=== PATIENT | female | born 1955 | race African-American/Black ===

== ENCOUNTER 2016-09-25 20:13 | Emergency (ER) | payer MEDICAID ==
[~2016-09-25] VITALS: Ht 170.2 cm; Wt 110.5 kg
[~2016-09-25 20:13] MED LIST: ALBU6.7H2 IH; AMLO5TAB88 PO; ASPI81TA2 PO; ATOR10TA PO; AZIT500T5 PO; DEXTL PO; IPRA3AMP9 HHN; METO50TA5 PO; QVAR80 IH; Tramadol Hcl PO; [UNRECOGNIZED DRUG - CODE] PO
[2016-09-25 20:35] VITALS: BP 136/64
== END 2016-09-25 22:54 | disposition left against medical advice (07) ==
LOC: ER 20:39
DX: Z53.21 Procedure and treatment not carried out due to patient leaving prior to being seen by health care provider (principal)

== ENCOUNTER 2016-12-08 22:38 | Emergency (ER) | payer MEDICAID ==
[~2016-12-08 22:38] MED LIST changes: +ASPI-1160 PO; -ASPI81TA2 PO
== END 2016-12-09 00:26 | disposition left against medical advice (07) ==
LOC: ER 22:38
DX: K62.5 Hemorrhage of anus and rectum (principal); Z53.21 Procedure and treatment not carried out due to patient leaving prior to being seen by health care provider

== ENCOUNTER 2016-12-13 05:30 | Emergency (ER) | payer MEDICAID ==
[~2016-12-13 05:30] MED LIST changes: -ASPI-1160 PO; +ASPI81TA2 PO
[2016-12-13 07:27] VITALS: BP 159/75
[2016-12-13] MEDS ORDERED: SODIUM CHLORIDE 0.9% 1,000 ML IV ONE (07:32)
[2016-12-13 08:02] LABS: BASOPHILS % 0.4 % (0.0-2.0); EOSINOPHILS % 0.4 % (0.0-5.0); HEMATOCRIT. 40.1 % (36.0-48.0); HEMOGLOBIN. 13.4 g/dL (12.0-16.0); LYMPHOCYTES % 7.8 % (20.0-50.0); MEAN CORPUSCULAR HEMOGLOBIN 27.8 pg (28.0-32.0); MEAN CORPUSCULAR VOLUME 83.2 fL (81.0-99.0); MEAN PLATELET VOLUME 8.4 fl (7.4-10.4); MONOCYTES % 6.4 % (2.0-8.0); PLATELET 131 x1000/uL (130-400); RED BLOOD CELL COUNT 4.82 mill/uL (4.2-5.4); RED CELL DISTRIBUTION WIDTH 16.7 % (11.6-14.6)
[2016-12-13 08:11] LABS: PARTIAL THROMBOPLASTIN TIME 21.9 sec (24.0-34.0); PROTHROMBIN TIME 10.3 sec
[2016-12-13 08:13] LABS: CARBON DIOXIDE 25 mEq/L (21-32); CHLORIDE 114 mEq/L (98-107)
== END 2016-12-13 10:02 | disposition home or self-care (01) ==
LOC: ER 05:30
DX: K64.4 Residual hemorrhoidal skin tags (principal); K62.89 Other specified diseases of anus and rectum; I48.91 Unspecified atrial fibrillation; J45.909 Unspecified asthma, uncomplicated; Z90.710 Acquired absence of both cervix and uterus; Z98.890 Other specified postprocedural states; Z88.0 Allergy status to penicillin; Z88.6 Allergy status to analgesic agent
CPT/HCPCS: 36415; 80053; 85025; 85610; 85730; 96360; 99284; J7030; Z7610

== ENCOUNTER 2017-06-05 10:21 | Emergency (ER) | payer MEDICAID ==
[~2017-06-05 10:21] MED LIST changes: +ASPI-1160 PO; -ASPI81TA2 PO; +DUONEB3 ML HHN; -IPRA3AMP9 HHN
== END 2017-06-05 11:18 | disposition left against medical advice (07) ==
LOC: ER 10:47
DX: Z53.21 Procedure and treatment not carried out due to patient leaving prior to being seen by health care provider (principal)

== ENCOUNTER 2018-03-06 04:16 | Emergency (ER) | payer MEDICAID ==
[~2018-03-06] VITALS: Ht 170.2 cm; Wt 108.0 kg
[~2018-03-06 04:16] MED LIST changes: +ALBU18HF2 IH; -ALBU6.7H2 IH; -AMLO5TAB88 PO; +ASPI-1159 PO; -ASPI-1160 PO; +AZIT250T12 PO; -AZIT500T5 PO; -DEXTL PO; +DILT240C3 PO; -DUONEB3 ML HHN; +GUAI600T44 PO; -METO50TA5 PO; +PULM50 HHN; -QVAR80 IH; +RANI300T4 PO; -Tramadol Hcl PO
[2018-03-06] MEDS ORDERED: PREDNISONE 20MG TABLET PO STA (04:51)
[2018-03-06] MEDS ORDERED: IPRATROPIUM BROMIDE (0.02%) 0.5MG/2.5ML NEB HHN STA (04:51)
[2018-03-06] MEDS ORDERED: ALBUTEROL (0.083%) 2.5MG/3ML NEB HHN STA (04:51)
[2018-03-06 06:02] VITALS: BP 137/64
== END 2018-03-06 06:05 | disposition home or self-care (01) ==
LOC: ER 04:16
DX: J44.1 Chronic obstructive pulmonary disease with (acute) exacerbation (principal); I48.91 Unspecified atrial fibrillation; Z88.0 Allergy status to penicillin; Z88.5 Allergy status to narcotic agent; Z79.82 Long term (current) use of aspirin; Z90.710 Acquired absence of both cervix and uterus
CPT/HCPCS: 93005; 94640; 99283; J7512; J7611

== ENCOUNTER 2018-06-04 07:00 | Emergency (ER) | payer MEDICAID ==
[~2018-06-04] VITALS: Ht 170.2 cm; Wt 105.0 kg
[2018-06-04] MEDS ORDERED: KETOROLAC 30MG/ML VIAL IM ONE (08:15)
[2018-06-04] MEDS ORDERED: ACETAMINOPHEN 325MG TABLET PO ONE (08:15)
[2018-06-04 09:58] VITALS: BP 132/71
== END 2018-06-04 10:18 | disposition home or self-care (01) ==
LOC: ER 07:00
DX: R51 Headache (principal); I48.91 Unspecified atrial fibrillation; J44.9 Chronic obstructive pulmonary disease, unspecified; Z98.890 Other specified postprocedural states; Z90.710 Acquired absence of both cervix and uterus; Z79.82 Long term (current) use of aspirin; Z79.899 Other long term (current) drug therapy; Z88.0 Allergy status to penicillin; Z88.5 Allergy status to narcotic agent
CPT/HCPCS: 96372; 99283; J1885

== ENCOUNTER 2018-07-30 02:17 | Emergency (ER) | payer MEDICAID ==
[~2018-07-30] VITALS: Ht 170.2 cm; Wt 109.0 kg
[2018-07-30] MEDS ORDERED: DILTIAZEM HCL 120MG CAPSULE CD 24HR PO ONE (03:30)
[2018-07-30 04:17] LABS: BASOPHILS % 0.7 % (0.0-2.0); EOSINOPHILS % 4.8 % (0.0-5.0); HEMATOCRIT. 41.4 % (36.0-48.0); HEMOGLOBIN. 13.4 g/dL (12.0-16.0); LYMPHOCYTES % 28.3 % (20.0-50.0); MEAN CORPUSCULAR HEMOGLOBIN 27.5 pg (28.0-32.0); MEAN CORPUSCULAR VOLUME 84.9 fL (81.0-99.0); MONOCYTES % 9.7 % (2.0-8.0); NEUTROPHILS % 56.5 % (40.0-76.0); PLATELET 155 x1000/uL (130-400); RED BLOOD CELL COUNT 4.88 mill/uL (4.2-5.4); RED CELL DISTRIBUTION WIDTH 15.9 % (11.6-14.6)
[2018-07-30 04:19] LABS: CHLORIDE 112 mEq/L (98-107)
[2018-07-30 04:22] LABS: ETHANOL BLOOD < 10 mg/dL
[2018-07-30] MEDS ORDERED: POTASSIUM CHLORIDE 20MEQ TABLET SR PO NR (05:30)
[2018-07-30 06:00] VITALS: BP 154/88
== END 2018-07-30 06:04 | disposition home or self-care (01) ==
LOC: ER 02:17
DX: I47.1 Supraventricular tachycardia (principal); I48.91 Unspecified atrial fibrillation; E87.6 Hypokalemia; J44.9 Chronic obstructive pulmonary disease, unspecified; Z90.710 Acquired absence of both cervix and uterus; Z98.890 Other specified postprocedural states; Z79.82 Long term (current) use of aspirin; Z79.899 Other long term (current) drug therapy; Z88.5 Allergy status to narcotic agent; Z88.0 Allergy status to penicillin
CPT/HCPCS: 36415; 71045; 80053; 84484; 85025; 93005; 99284; G0482

== ENCOUNTER 2018-09-13 06:14 | Emergency (ER) | payer MEDICAID ==
[~2018-09-13] VITALS: Ht 170.2 cm; Wt 107.0 kg
[2018-09-13] MEDS ORDERED: IBUPROFEN 600MG TABLET PO STA (06:56)
[2018-09-13] MEDS ORDERED: IPRATROPIUM BROMIDE (0.02%) 0.5MG/2.5ML NEB HHN STA (06:56)
[2018-09-13] MEDS ORDERED: ALBUTEROL (0.083%) 2.5MG/3ML NEB HHN STA (06:56)
[2018-09-13 08:24] VITALS: BP 128/64
== END 2018-09-13 08:36 | disposition home or self-care (01) ==
LOC: ER 06:14
DX: J45.909 Unspecified asthma, uncomplicated (principal); H60.91 Unspecified otitis externa, right ear; J44.9 Chronic obstructive pulmonary disease, unspecified; Z90.710 Acquired absence of both cervix and uterus; Z98.890 Other specified postprocedural states; Z79.82 Long term (current) use of aspirin; Z79.899 Other long term (current) drug therapy; Z88.0 Allergy status to penicillin; Z88.5 Allergy status to narcotic agent
CPT/HCPCS: 71045; 94640; 99283; J7611

== ENCOUNTER 2019-06-23 06:01 | Emergency (ER) | payer MEDICAID ==
[~2019-06-23] VITALS: Ht 170.2 cm; Wt 98.0 kg
[~2019-06-23 06:01] MED LIST changes: -ASPI-1159 PO; +ASPI-1393 PO
[2019-06-23] MEDS ORDERED: MORPHINE SULFATE 4 MG/ML CPJ (NOT FOR IM USE) IV STA (07:16)
[2019-06-23] MEDS ORDERED: ALBUTEROL (0.083%) 2.5MG/3ML NEB HHN STA (07:18)
[2019-06-23] MEDS ORDERED: IPRATROPIUM BROMIDE (0.02%) 0.5MG/2.5ML NEB HHN STA (07:18)
[2019-06-23] MEDS ORDERED: METHYLPREDNISOLONE SOD SUCC 125 MG/2 ML VIAL IV STA (07:18)
[2019-06-23 07:40] LABS: BASOPHILS % 0.8 % (0.0-2.0); EOSINOPHILS % 8.9 % (0.0-5.0); HEMATOCRIT. 43.3 % (36.0-48.0); HEMOGLOBIN. 13.9 g/dL (12.0-16.0); LYMPHOCYTES % 34.2 % (20.0-50.0); MEAN CORPUSCULAR HEMOGLOBIN 26.5 pg (28.0-32.0); MEAN CORPUSCULAR VOLUME 82.2 fL (81.0-99.0); MEAN PLATELET VOLUME 9.2 fl (7.4-10.4); MONOCYTES % 14.6 % (2.0-8.0); NEUTROPHILS % 41.5 % (40.0-76.0); PLATELET 166 x1000/uL (130-400); RED BLOOD CELL COUNT 5.26 mill/uL (4.2-5.4); RED CELL DISTRIBUTION WIDTH 15.5 % (11.6-14.6)
[2019-06-23 07:45] LABS: CHLORIDE 114 mEq/L (98-107)
[2019-06-23] MEDS ORDERED: KETOROLAC 30MG/ML VIAL IV ONE (08:45)
[2019-06-23] MEDS ORDERED: ONDANSETRON HCL 4MG/2ML INJ IV ONE (09:30)
[2019-06-23] MEDS ORDERED: ASPIRIN 325MG EC TABLET PO ONE (09:30)
[2019-06-23 11:55] VITALS: BP 135/72
== END 2019-06-23 12:16 | disposition left against medical advice (07) ==
LOC: ER 06:20 → CANBEDREQ 12:08 → ER 12:16
DX: R07.89 Other chest pain (principal); J44.9 Chronic obstructive pulmonary disease, unspecified; Z88.0 Allergy status to penicillin; Z88.5 Allergy status to narcotic agent; Z98.890 Other specified postprocedural states; Z90.710 Acquired absence of both cervix and uterus; Z87.891 Personal history of nicotine dependence; Z79.82 Long term (current) use of aspirin
CPT/HCPCS: 36415; 71045; 80053; 83880; 84484; 85025; 93005; 96374; 96375; 99284; J1885; J2270; J2405; J2930; J7611

== ENCOUNTER 2022-07-21 17:08 | Emergency (ER) | payer MEDICARE, MEDICAID ==
[~2022-07-21] VITALS: Ht 170.2 cm; Wt 106.0 kg
[~2022-07-21 17:08] MED LIST changes: -ASPI-1393 PO; +ASPI-1497 PO; -DILT240C3 PO; +DILT240C94 PO
[2022-07-21 17:23] VITALS: BP 133/65
== END 2022-07-21 18:26 | disposition left against medical advice (07) ==
LOC: ER 17:08
DX: I48.91 Unspecified atrial fibrillation (principal); R00.2 Palpitations; J44.9 Chronic obstructive pulmonary disease, unspecified; Z90.710 Acquired absence of both cervix and uterus; Z79.899 Other long term (current) drug therapy
CPT/HCPCS: 93005; 99283

== ENCOUNTER 2023-11-30 07:56 | Day surgery (SDC) | payer MEDICARE, MEDICAID ==
[~2023-11-30] VITALS: Ht 170.2 cm; Wt 110.2 kg
[~2023-11-30 07:56] MED LIST changes: +AMLO5TAB88 PO; -ATOR10TA PO; +ATOR40TA70 PO; -AZIT250T12 PO; +CLON0.1T PO; +DICL75TA5 PO; -DILT240C94 PO; +GABA-532 PO; -GUAI600T44 PO; +LACTATED RINGERS 1,000 ML IV SCH; +LOSA50TA41 PO; +METO-539 PO; +OMEP40CA20 PO; -PULM50 HHN; -RANI300T4 PO; -[UNRECOGNIZED DRUG - CODE] PO
[2023-11-30] MEDS: LACTATED RINGERS 1,000 ML IV SCH (09:27)
[2023-11-30] MEDS ORDERED: MIDAZOLAM HCL 2 MG/2 ML VIAL ONE (10:57)
[2023-11-30] MEDS ORDERED: PROPOFOL 200MG/20ML VIAL IV ONE ×3 (10:58→11:30)
[2023-11-30] MEDS ORDERED: LIDOCAINE HCL 1% 10 MG/ML 10ML VIAL ONE (10:59)
[2023-11-30] MEDS ORDERED: ONDANSETRON HCL 4MG/2ML INJ ONE (11:15)
[2023-11-30] MEDS ORDERED: DEXAMETHASONE 4MG/ML 1ML VIAL ONE (11:15)
[2023-12-02] MEDS ORDERED: ATOR10TA69 PO (21:58)
[2023-12-02] MEDS ORDERED: LOSA100T33 PO (21:58)
[2023-12-02] MEDS ORDERED: MOME13HF12 IH (21:58)
[2023-12-02] MEDS ORDERED: FURO40TA5 PO (23:31)
[2023-12-07] MEDS ORDERED: PRED10TA MT (10:52)
[2023-12-07] MEDS ORDERED: DOXY100T2 MT (10:52)
[2023-12-07] MEDS ORDERED: BENZ1LOZ73 MT (10:52)
== END 2023-11-30 13:25 | disposition home or self-care (01) ==
LOC: OR 07:56
PROVIDERS: ATTEND Internal Medicine Gastroenterology
DX: Z12.11 Encounter for screening for malignant neoplasm of colon (principal); R12 Heartburn; K29.50 Unspecified chronic gastritis without bleeding; K21.00 Gastro-esophageal reflux disease with esophagitis, without bleeding; I10 Essential (primary) hypertension; E66.9 Obesity, unspecified; E78.5 Hyperlipidemia, unspecified; E66.01 Morbid (severe) obesity due to excess calories; J45.909 Unspecified asthma, uncomplicated; I48.91 Unspecified atrial fibrillation; M19.90 Unspecified osteoarthritis, unspecified site; Z88.5 Allergy status to narcotic agent; Z88.8 Allergy status to other drugs, medicaments and biological substances; Z90.710 Acquired absence of both cervix and uterus; Z98.890 Other specified postprocedural states; Z88.0 Allergy status to penicillin; Z68.38 Body mass index [BMI] 38.0-38.9, adult; Z79.82 Long term (current) use of aspirin; Z86.73 Personal history of transient ischemic attack (TIA), and cerebral infarction without residual deficits
CPT/HCPCS: 43239; 88312; 88313; 88305; 93005; J1100; J3490; J2250; J2405; J2704; Z7610 ×9; G0121

== ENCOUNTER 2024-12-03 18:07 | Inpatient (IN) | payer MEDICARE, MEDICAID ==
[~2024-12-03] VITALS: Ht 165.1 cm; Wt 114.1 kg
[~2024-12-03 18:07] MED LIST changes: +ATOR10TA69 PO; -ATOR40TA70 PO; +BENZ1LOZ73 MT; +DOXY100T2 MT; +FURO40TA5 PO; -GABA-532 PO; -LACTATED RINGERS 1,000 ML IV SCH; +LOSA100T33 PO; -LOSA50TA41 PO; +MOME13HF12 IH; +PRED10TA MT
[2024-12-03 19:22] LABS: BASOPHILS % 0.7 % (0.0-2.0); EOSINOPHILS % 2.9 % (0.0-5.0); HEMATOCRIT. 41.5 % (36.0-48.0); HEMOGLOBIN. 13.4 g/dL (12.0-16.0); LYMPHOCYTES % 33.1 % (20.0-50.0); MEAN CORPUSCULAR HEMOGLOBIN 26.7 pg (28.0-32.0); MEAN CORPUSCULAR HGB CONC 32.4 g/dL (31.0-37.0); MEAN CORPUSCULAR VOLUME 82.5 fL (81.0-99.0); MEAN PLATELET VOLUME 8.7 fl (7.4-10.4); MONOCYTES % 13.2 % (2.0-8.0); NEUTROPHILS % 50.1 % (40.0-76.0); PLATELET 190 x1000/uL (130-400); RED BLOOD CELL COUNT 5.04 mill/uL (4.2-5.4); RED CELL DISTRIBUTION WIDTH 16.9 % (11.6-14.6); WHITE BLOOD COUNT 6.3 x1000/uL (4.5-11.0)
[2024-12-03 19:30] LABS: CHLORIDE 109 mEq/L (98-107); POTASSIUM 4.4 mEq/L (3.5-5.1); SODIUM 143 mEq/L (136-145)
[2024-12-03 19:31] LABS: CARBON DIOXIDE 25 mEq/L (21-32)
[2024-12-03 19:32] LABS: CALCIUM 8.6 mg/dL (8.7-10.4)
[2024-12-03] MEDS ORDERED: KETOROLAC 30MG/ML VIAL IV STA (19:33)
[2024-12-03 19:36] LABS: GLUCOSE 96 mg/dL (70-105); UREA NITROGEN BLOOD 16 mg/dL (9-23)
[2024-12-03 19:39] LABS: CREATININE 1.3 mg/dL (0.6-1.0); TROPONIN I HIGH SENSITIVITY < 4 ng/L (3.0-34)
[2024-12-03] MEDS: DIPHENHYDRAMINE 50MG/ML VIAL IV ONE (21:30)
[2024-12-03] MEDS: METOCLOPRAMIDE HCL 10MG/2ML VIAL IV ONE (21:37)
[2024-12-03] MEDS: KETOROLAC 30MG/ML VIAL IV NR (21:44)
[2024-12-03] MEDS: SODIUM CHLORIDE 0.9% 1,000 ML IV ONE (21:45)
[2024-12-03] MEDS: METOCLOPRAMIDE HCL 10MG/2ML VIAL IV NR (21:55)
[2024-12-04] VITALS (7 sets, daily range): BP systolic 99–148; BP diastolic 34–78; PULSE 79–98; RESP 18–19; TEMP 36.1–37.3; O2SAT 97–100
[2024-12-04] MEDS ORDERED: LIDOCAINE HCL 1% 10 MG/ML 10ML VIAL ONE (08:10)
[2024-12-04] MEDS ORDERED: GUAIFENESIN 200MG/10ML SUGAR FREE UDC PO PRN (08:30)
[2024-12-04] MEDS ORDERED: HYDROCODONE/ACETAMINOPHEN 5/325MG TABLET PO PRN ×2 (08:30→09:00)
[2024-12-04] MEDS ORDERED: NITROGLYCERIN 0.4MG TABLET SL SL PRN (08:30)
[2024-12-04] MEDS ORDERED: MORPHINE SULFATE 2 MG/ML INJ (NOT FOR IM USE) IV PRN (08:30)
[2024-12-04] MEDS ORDERED: ACETAMINOPHEN 325MG TABLET PO PRN (08:30)
[2024-12-04] MEDS ORDERED: MAGNESIUM/ALUMINUM HYDROXIDE/SIMETHICONE 30ML UDC PO PRN (08:30)
[2024-12-04] MEDS ORDERED: ONDANSETRON HCL 4MG/2ML INJ IV PRN (08:30)
[2024-12-04] MEDS ORDERED: IPRATROPIUM/ALBUTEROL 0.5-3(2.5)MG/3ML NEB HHN PRN (08:30)
[2024-12-04] MEDS ORDERED: DOCUSATE SODIUM 100MG CAPSULE PO PRN (08:30)
[2024-12-04] MEDS ORDERED: NALOXONE HCL 0.4MG/ML VIAL IV PRN (08:45)
[2024-12-04] MEDS: LOSARTAN 100 MG TABLET PO SCH (09:00)
[2024-12-04] MEDS: FUROSEMIDE 40MG TABLET PO SCH (09:00)
[2024-12-04] MEDS ORDERED: ASPIRIN 81MG EC TABLET PO SCH (09:00)
[2024-12-04] MEDS: CLONIDINE 0.1MG TABLET PO SCH (09:00)
[2024-12-04] MEDS: AMLODIPINE 5MG TABLET PO SCH (09:00)
[2024-12-04] MEDS: METOPROLOL TARTRATE 50MG TABLET PO SCH (09:00)
[2024-12-04 12:24] LABS: CREATINE KINASE MB FRACTION 0.6 ng/mL (0.5-3.6); ETHANOL BLOOD < 10 mg/dL (<10); TROPONIN I HIGH SENSITIVITY 20 ng/L (3.0-34)
[2024-12-04 12:25] LABS: CREATINE KINASE 68 IU/L (34-145)
[2024-12-04] MEDS: SODIUM CHLORIDE 0.9% 1,000 ML IV SCH (18:47)
[2024-12-04] MEDS: PANTOPRAZOLE SODIUM 40 MG/VIAL IV SCH (19:54)
[2024-12-04] MEDS: ASPIRIN 81MG EC TABLET PO SCH (20:02)
[2024-12-04] MEDS: ENOXAPARIN 30MG/0.3ML SYR SUBCUT SCH (20:02)
[2024-12-04] MEDS: ATORVASTATIN CALCIUM 40MG TABLET PO SCH (20:17)
[2024-12-04] MEDS: ACETAMINOPHEN 325MG TABLET PO PRN (20:18)
[2024-12-04] MEDS: KETOROLAC 15MG/ML VIAL IV PRN (22:36)
[2024-12-05] VITALS: BP 165/96; PULSE 102; RESP 19; TEMP 36.7; O2SAT 100
[2024-12-05] MEDS: CLONIDINE 0.1MG TABLET PO PRN (01:09)
[2024-12-05 01:40] LABS: CREATINE KINASE 68 IU/L (34-145)
[2024-12-05 01:44] LABS: CREATINE KINASE MB FRACTION < 0.5 ng/mL (0.5-3.6); TROPONIN I HIGH SENSITIVITY 12 ng/L (3.0-34)
[2024-12-05 04:00] VITALS: BP 135/69; PULSE 72; RESP 18; TEMP 36.6; O2SAT 98
[2024-12-05 08:00] VITALS: BP 129/61; PULSE 77; RESP 20; TEMP 36.7; O2SAT 98
[2024-12-05] MEDS: PREDNISONE 20MG TABLET PO SCH (09:36)
[2024-12-05 12:00] VITALS: BP 131/59; PULSE 81; RESP 19; TEMP 36.8; O2SAT 98
[2024-12-05 16:00] VITALS: BP 122/64; PULSE 84; RESP 19; TEMP 36.6; O2SAT 97
[2024-12-05 17:54] VITALS: BP 129/63; PULSE 86; TEMP 97.9; O2SAT 97
== END 2024-12-05 18:50 | disposition home or self-care (01) | DRG 684 ==
LOC: ER 18:07 → 6WST 23:09 → ENRESERV 23:21
PROVIDERS: ADMIT Hospitalist; ATTEND Hospitalist
PROC: 02H633Z Insertion of Infusion Device into Right Atrium, Percutaneous Approach (ICD-10-PCS; principal; 2024-12-04)
PROC: B5181ZA Fluoroscopy of Superior Vena Cava using Low Osmolar Contrast, Guidance (ICD-10-PCS; 2024-12-04)
PROC: B548ZZA Ultrasonography of Superior Vena Cava, Guidance (ICD-10-PCS; 2024-12-04)
DX: N17.9 Acute kidney failure, unspecified (principal); R51.9 Headache, unspecified; E78.5 Hyperlipidemia, unspecified; I48.0 Paroxysmal atrial fibrillation; I25.10 Atherosclerotic heart disease of native coronary artery without angina pectoris; Z96.642 Presence of left artificial hip joint; I10 Essential (primary) hypertension; Z79.899 Other long term (current) drug therapy; I25.2 Old myocardial infarction; Z79.51 Long term (current) use of inhaled steroids; Z79.82 Long term (current) use of aspirin; Z87.891 Personal history of nicotine dependence; Z88.0 Allergy status to penicillin; Z88.5 Allergy status to narcotic agent; Z90.710 Acquired absence of both cervix and uterus; Z99.81 Dependence on supplemental oxygen; J44.9 Chronic obstructive pulmonary disease, unspecified
CPT/HCPCS: 36415; 36573; 70544; 70547; 70553; 71045; 80048; 80320; 82550; 82553; 83880; 84484; 85025; 85651; 93005; 97161; 97166; 99285; C1725; J1200; J1650; J1885; J2003; J2470; J2765; J7030; J7512; G0480

== ENCOUNTER 2025-06-14 18:08 | Inpatient (IN) | payer MEDICARE, MEDICAID ==
[~2025-06-14] VITALS: Ht 170.2 cm; Wt 113.9 kg
[~2025-06-14 18:08] MED LIST changes: -BENZ1LOZ73 MT; -CLON0.1T PO; -DOXY100T2 MT; -PRED10TA MT
[2025-06-14] MEDS: SODIUM CHLORIDE 0.9% 1,000 ML IV ONE (19:09)
[2025-06-14 19:11] LABS: BASOPHILS % 0.7 % (0.0-2.0); EOSINOPHILS % 1.6 % (0.0-5.0); HEMATOCRIT. 42.6 % (36.0-48.0); HEMOGLOBIN. 13.7 g/dL (12.0-16.0); LYMPHOCYTES % 20.4 % (20.0-50.0); MEAN PLATELET VOLUME 9.1 fl (7.4-10.4); MONOCYTES % 10.9 % (2.0-8.0); NEUTROPHILS % 66.4 % (40.0-76.0); PLATELET 192 x1000/uL (130-400); RED BLOOD CELL COUNT 5.05 mill/uL (4.2-5.4); RED CELL DISTRIBUTION WIDTH 16.7 % (11.6-14.6)
[2025-06-14 19:28] LABS: CREATININE 0.8 mg/dL (0.6-1.0)
[2025-06-14 19:29] LABS: UREA NITROGEN BLOOD 14 mg/dL (9-23)
[2025-06-14 19:30] LABS: ASPARTATE AMINOTRANSFERASE 15 IU/L (<34); TROPONIN I HIGH SENSITIVITY 6 ng/L (3.0-34)
[2025-06-14 19:31] LABS: BILIRUBIN DIRECT < 0.1 mg/dL (<=3.0); BILIRUBIN TOTAL 0.3 mg/dL (0.1-1.0); PROTEIN TOTAL 6.4 g/dL (6.0-8.3)
[2025-06-14 19:32] LABS: INR 0.9
[2025-06-14] MEDS: ASPIRIN 81MG TABLET PO ONE (19:52)
[2025-06-14] MEDS: ENOXAPARIN 80MG/0.8ML SYR SUBCUT ONE (22:37)
[2025-06-15] VITALS (10 sets, daily range): BP systolic 111–141; BP diastolic 52–76; PULSE 65–97; RESP 16–20; TEMP 36.1–36.6; O2SAT 94–99
[2025-06-15] MEDS ORDERED: CLONIDINE 0.1MG TABLET PO PRN
[2025-06-15] MEDS ORDERED: IPRATROPIUM/ALBUTEROL 0.5-3(2.5)MG/3ML NEB HHN PRN
[2025-06-15] MEDS ORDERED: ONDANSETRON HCL 4MG/2ML INJ IV PRN
[2025-06-15] MEDS ORDERED: LORAZEPAM 0.5MG TABLET PO PRN
[2025-06-15] MEDS ORDERED: ACETAMINOPHEN 325MG TABLET PO PRN
[2025-06-15] MEDS: DILTIAZEM HCL 60MG TABLET PO SCH (01:04)
[2025-06-15] MEDS: PANTOPRAZOLE 40MG DR TABLET PO SCH (01:04)
[2025-06-15] MEDS: MAGNESIUM 2 G PREMIX 50 ML IV NR (01:10)
[2025-06-15] MEDS: SODIUM CHLORIDE 0.45% 1,000 ML IV ONE (03:05)
[2025-06-15] MEDS: IPRATROPIUM BROMIDE (0.02%) 0.5MG/2.5ML NEB HHN SCH (08:08)
[2025-06-15] MEDS: BUDESONIDE 0.5MG/2ML NEB HHN SCH (08:09)
[2025-06-15] MEDS: ACETAMINOPHEN 325MG TABLET PO PRN (08:35)
[2025-06-15] MEDS: LOSARTAN 100 MG TABLET PO SCH (08:36)
[2025-06-15] MEDS: ENOXAPARIN 80MG/0.8ML SYR SUBCUT SCH (08:36)
[2025-06-15] MEDS: ASPIRIN 81MG EC TABLET PO SCH (08:36)
[2025-06-15 11:53] LABS: BASOPHILS % 0.5 % (0.0-2.0); EOSINOPHILS % 2.3 % (0.0-5.0); HEMATOCRIT. 40.3 % (36.0-48.0); HEMOGLOBIN. 12.5 g/dL (12.0-16.0); LYMPHOCYTES % 23.0 % (20.0-50.0); MEAN PLATELET VOLUME 9.2 fl (7.4-10.4); MONOCYTES % 9.2 % (2.0-8.0); NEUTROPHILS % 65.0 % (40.0-76.0); PLATELET 174 x1000/uL (130-400); RED BLOOD CELL COUNT 4.76 mill/uL (4.2-5.4); RED CELL DISTRIBUTION WIDTH 17.0 % (11.6-14.6)
[2025-06-15 12:14] LABS: TROPONIN I HIGH SENSITIVITY 5 ng/L (3.0-34)
[2025-06-15 12:15] LABS: CREATININE 0.8 mg/dL (0.6-1.0); TRIGLYCERIDE 38 mg/dL (0-150); UREA NITROGEN BLOOD 10 mg/dL (9-23)
[2025-06-15 12:16] LABS: LDL CHOLESTEROL 104 mg/dL (5-100)
[2025-06-15 12:17] LABS: PHOSPHORUS 2.7 mg/dL (2.5-4.9)
[2025-06-15 12:19] LABS: T4 FREE 1.18 ng/dL (0.89-1.76)
[2025-06-15 12:21] LABS: VITAMIN B12 SERUM 769 pg/mL (211-911)
[2025-06-15] MEDS: GUAIFENESIN 200MG/10ML SUGAR FREE UDC PO PRN (14:59)
[2025-06-15] MEDS: KETOROLAC 15MG/ML VIAL IV NR (17:31)
[2025-06-15 18:20] LABS: TROPONIN I HIGH SENSITIVITY 4 ng/L (3.0-34)
[2025-06-15] MEDS: ATORVASTATIN CALCIUM 10MG TABLET PO SCH (21:20)
[2025-06-15] MEDS: APIXABAN 5 MG TABLET PO SCH (21:22)
[2025-06-16] VITALS (8 sets, daily range): BP systolic 122–159; BP diastolic 47–89; PULSE 64–90; RESP 16–20; TEMP 36.3–37.1; O2SAT 94–100
[2025-06-16 09:17] LABS: BASOPHILS % 0.4 % (0.0-2.0); EOSINOPHILS % 1.6 % (0.0-5.0); HEMATOCRIT. 42.2 % (36.0-48.0); HEMOGLOBIN. 13.5 g/dL (12.0-16.0); LYMPHOCYTES % 23.0 % (20.0-50.0); MEAN PLATELET VOLUME 9.1 fl (7.4-10.4); MONOCYTES % 7.4 % (2.0-8.0); NEUTROPHILS % 67.6 % (40.0-76.0); PLATELET 201 x1000/uL (130-400); RED BLOOD CELL COUNT 5.01 mill/uL (4.2-5.4); RED CELL DISTRIBUTION WIDTH 16.5 % (11.6-14.6)
[2025-06-16 09:18] LABS: CREATININE 1.0 mg/dL (0.6-1.0); UREA NITROGEN BLOOD 12 mg/dL (9-23)
[2025-06-16 09:20] LABS: PHOSPHORUS 3.0 mg/dL (2.5-4.9)
[2025-06-17] VITALS: BP 114/46; PULSE 90; RESP 20; TEMP 36.3; O2SAT 97
[2025-06-17 04:00] VITALS: BP 150/69; PULSE 79; RESP 20; TEMP 36.5; O2SAT 96
[2025-06-17 06:10] LABS: BASOPHILS % 0.3 % (0.0-2.0); EOSINOPHILS % 1.4 % (0.0-5.0); HEMATOCRIT. 37.6 % (36.0-48.0); HEMOGLOBIN. 12.0 g/dL (12.0-16.0); LYMPHOCYTES % 18.9 % (20.0-50.0); MEAN PLATELET VOLUME 8.9 fl (7.4-10.4); MONOCYTES % 11.1 % (2.0-8.0); NEUTROPHILS % 68.3 % (40.0-76.0); PLATELET 172 x1000/uL (130-400); RED BLOOD CELL COUNT 4.46 mill/uL (4.2-5.4); RED CELL DISTRIBUTION WIDTH 16.3 % (11.6-14.6)
[2025-06-17 06:22] LABS: CREATININE 0.8 mg/dL (0.6-1.0); UREA NITROGEN BLOOD 11 mg/dL (9-23)
[2025-06-17 07:59] VITALS: PULSE 79; RESP 18; O2SAT 97
[2025-06-17 08:00] VITALS: BP 158/75; PULSE 70; RESP 16; TEMP 36.4; O2SAT 97
[2025-06-17] MEDS ORDERED: DILT180C87 MT (09:42)
[2025-06-17] MEDS ORDERED: ASPI-1497 PO (09:42)
[2025-06-17] MEDS ORDERED: LOSA100T33 PO (09:42)
[2025-06-17] MEDS ORDERED: APIX5TAB PO (09:42)
[2025-06-17] MEDS: KETOROLAC 15MG/ML VIAL IV NR (09:55)
[2025-06-17 11:44] VITALS: BP 158/75; PULSE 70; RESP 16; TEMP 97.6
[2025-06-17 12:00] VITALS: BP 154/87; PULSE 94; RESP 16; TEMP 36.6; O2SAT 97
== END 2025-06-17 15:25 | disposition home or self-care (01) | DRG 309 ==
LOC: ER 18:08 → EDBEDREQTM 22:52 → EDBEDREQ 22:52 → ENRESERV 06-15 01:32 → 6WST 06-15 02:47
PROVIDERS: ADMIT Hospitalist; ATTEND Hospitalist
DX: I48.0 Paroxysmal atrial fibrillation (principal); E87.0 Hyperosmolality and hypernatremia; Z99.81 Dependence on supplemental oxygen; Z79.01 Long term (current) use of anticoagulants; E66.9 Obesity, unspecified; I10 Essential (primary) hypertension; J44.89 Other specified chronic obstructive pulmonary disease; K31.A0 Gastric intestinal metaplasia, unspecified; E86.0 Dehydration; E83.42 Hypomagnesemia; K29.60 Other gastritis without bleeding; E78.5 Hyperlipidemia, unspecified; I25.2 Old myocardial infarction; Z79.51 Long term (current) use of inhaled steroids; Z79.82 Long term (current) use of aspirin; Z79.899 Other long term (current) drug therapy; Z86.73 Personal history of transient ischemic attack (TIA), and cerebral infarction without residual deficits; Z87.891 Personal history of nicotine dependence; Z88.0 Allergy status to penicillin; Z88.5 Allergy status to narcotic agent; Z90.710 Acquired absence of both cervix and uterus; Z68.39 Body mass index [BMI] 39.0-39.9, adult
CPT/HCPCS: 36415; 71045; 78580; 80048; 80061; 80076; 82607; 82962; 83036; 83540; 83550; 83735; 83880; 83930; 84100; 84439; 84443; 84484; 85025; 85379; 93005; 93306; 93970; 94070; 94640; 96365; 96372; 97165; 99285; A4606; J1650; J1885; J3475; J7030; J7626